=== PATIENT | female | born 1995 | race Caucasian/White ===

== ENCOUNTER 2018-02-28 02:00 | Inpatient (IN) | END 2018-03-02 12:30 | disposition home or self-care (01) | DRG 690 ==

== ENCOUNTER 2018-03-16 19:56 | Emergency (ER) | END 2018-03-17 07:06 | disposition short-term general hospital (02) ==

== ENCOUNTER 2018-09-26 08:26 | Emergency (ER) | payer OTHER ==
[~2018-09-26] VITALS: Ht 157.5 cm; Wt 75.9 kg
[~2018-09-26 08:26] MED LIST: CEPH-443 PO; CHOL400T10 PO; FER325 PO; MYCO200S PO; PRED5TAB PO; RANI150T35 PO; TACR1CAP26 PO
[2018-09-26 08:28] VITALS: BP 128/78; PULSE 79; RESP 18; Ht 157.5 cm; Wt 75.9 kg
[2018-09-26] MEDS ORDERED: LIDOCAINE 1% (MPF) 5 ML VIAL INJ ONE (09:00)
[2018-09-26] MEDS ORDERED: CEFTRIAXONE 1 GM INJ IM ONE (09:00)
[2018-09-26] MEDS ORDERED: CIPR500T4 PO (09:31)
[2018-09-26] MEDS ORDERED: PHEN-538 PO (09:31)
--- NOTE | 2018-09-26 09:48 | ERD ---
ER Documentation Chief Complaint Chief Complaint pain/burning with urination x 2 weeks HPI 22-year-old female presenting with dysuria for 2 weeks. Patient had a history of kidney transplant October 2017 with history of urinary tract infections. She states 2 weeks ago she began having dysuria with urinary frequency. She denies any back pain or fevers. Denies hematuria. She has been taking Macrobid with no alleviation of symptoms. Her next nephrology appointment is September 2017. 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 Patient has never been on dialysis. NKDA. Surgical history transplant surgery. Social history denies. Fever denies ROS All systems reviewed and are negative except as per history of present illness. Medications Home Meds Active Scripts Phenazopyridine Hcl* (Pyridium*) 200 Mg Tab, 200 MG PO TID PRN for URINARY PAIN, #6 TAB Prov:DELPHINE GANNON PA-C 09/26/18 Ciprofloxacin Hcl* (Ciprofloxacin Hcl*) 500 Mg Tablet, 500 MG PO BID for 10 Days, TAB Prov:DELPHINE GANNON PA-C 09/26/18 Cephalexin* (Keflex*) 500 Mg Capsule, 500 MG PO Q8, #15 CAP Prov:DELFINO TERRELL 03/02/18 Ferrous Sulfate* (Ferrous Sulfate*) 325 Mg Tabec, 325 MG PO BID, #60 TAB Prov:DELFINO TERRELL 03/02/18 Reported Medications Tacrolimus* (Prograf*) 1 Mg Capsule, 3 MG PO Q12, CAP 02/28/18 Ranitidine Hcl* (Zantac*) 150 Mg Tablet, 150 MG PO BID, #60 TAB 02/28/18 Cholecalciferol* (Vitamin D*) 400 Unit Tablet, 400 UNIT PO DAILY, TAB 02/28/18 Prednisone* (Prednisone*) 5 Mg Tab, 5 MG PO DAILY, TAB 02/28/18 Mycophenolate Mofetil* (Cellcept*) 200 Mg/Ml Susp.recon, 1000 MG PO Q12, ML 02/28/18 Allergies Allergies: Coded Allergies: No Known Allergy (Unverified , 09/26/18) PMhx/Soc History of Surgery: Yes (RIGHT KIDNEY TRANSPLANT) Anesthesia Reaction: No Hx Neurological Disorder: No Hx Respiratory Disorders: No Hx Cardiac Disorders: No Hx Psychiatric Problems: No Hx Miscellaneous Medical Probl: Yes (renal hypoplasia) Hx Alcohol Use: No Hx Substance Use: No Hx Tobacco Use: No Smoking Status: Never smoker FmHx Family History: No diabetes, No coronary disease, No other Physical Exam Vitals Vital Signs Date Temp Pulse Resp B/P (MAP) Pulse Ox O2 O2 Flow FiO2 Time Delivery Rate 09/26/18 98.7 79 18 128/78 100 08:28 (95) Physical Exam GENERAL: The patient is well-appearing, well-nourished, in no acute distress CHEST: Clear to auscultation bilaterally. There are no rales, wheezes or rhonchi. HEART: Regular rate and rhythm. No murmurs, clicks, rubs or gallops. ABDOMEN:Soft, nontender and nondistended. Good bowel sounds. No rebound or guarding. No gross peritonitis. No gross organomegaly or masses. Positive suprapubic tenderness. BACK: No midline or flank tenderness. CVA tenderness Results 24 hrs Laboratory Tests Test 09/26/18 09:20 09/26/18 09:22 Bedside Urine pH (LAB) 6.5 Bedside Urine Protein (LAB) 2+ Bedside Urine Glucose (UA) Negative Bedside Urine Ketones (LAB) Negative Bedside Urine Blood 1+ Bedside Urine Nitrite (LAB) Positive Bedside Urine Leukocyte Esterase (L 3+ POC Beta HCG, Qualitative NEGATIVE Current Medications Medications Dose Sig/Wellington Start Time Status Last (Trade) Ordered Route PRN Stop Time Admin Dose Reason Admin Ceftriaxone 1 gm ONCE ONCE 09/26/18 DC 09/26/18 Sodium IM 09:00 09:11 (Rocephin) 09/26/18 09:01 Lidocaine 5 ml ONCE ONCE 09/26/18 DC 09/26/18 (Xylocaine INJ 09:00 09:11 1% (Mpf)) 09/26/18 09:01 Procedures/MDM ER course: Urine sent for culture. Rocephin given ED. MDM: 22-year-old female presenting with findings consistent with urinary tract infection. Patient is recommended to follow-up with her mathematics professor earlier than the end of the month. Patient is discharged with antibiotics. Patient is told symptoms change or worsen to return to the ER. I have low suspicion for pyelonephritis given there is no CVA tenderness and patient's vitals are stable. Patient is discharged stricter precautions. All questions answered at discharge Departure Diagnosis: Primary Impression: UTI (urinary tract infection) Condition: Stable Patient Instructions: Understanding Urinary Tract Infections (UTIs) Referrals: [facility] YOU HAVE RECEIVED A MEDICAL SCREENING EXAM AND THE RESULTS INDICATE THAT YOU DO NOT HAVE A CONDITION THAT REQUIRES URGENT TREATMENT IN THE EMERGENCY DEPARTMENT. FURTHER EVALUATION AND TREATMENT OF YOUR CONDITION CAN WAIT UNTIL YOU ARE SEEN IN YOUR DOCTORS OFFICE WITHIN THE NEXT 1-2 DAYS. IT IS YOUR RESPONSIBILITY TO MAKE AN APPOINTMENT FOR FOLOW-UP CARE. IF YOU HAVE A PRIMARY DOCTOR --you should call your primary doctor and schedule an appointment IF YOU DO NOT HAVE A PRIMARY DOCTOR YOU CAN CALL OUR PHYSICIAN REFERRAL HOTLINE AT IF YOU CAN NOT AFFORD TO SEE A PHYSICIAN YOU CAN CHOSE FROM THE FOLLOWING [facility] [address] [facility] [address] [facility] [address] [facility] [address] [facility]. [facility] [address] [facility]. [facility] [address] Additional Instructions: FOLLOW UP WITH YOUR PRIMARY CARE PHYSICIAN TOMORROW.Return to this facility if you are not improving as expected. DELPHINE GANNON PA-C Sep 26, 2018 09:48
== END 2018-09-26 10:00 | disposition home or self-care (01) ==
LOC: FTE 08:26
DX: N39.0 Urinary tract infection, site not specified (principal)
CPT/HCPCS: 81003; 81025; 87086; 96372; J0696; Z7502; Z7610

== ENCOUNTER 2019-01-16 13:41 | Emergency (ER) | payer OTHER ==
[~2019-01-16] VITALS: Ht 149.9 cm; Wt 75.2 kg
[~2019-01-16 13:41] MED LIST changes: +CIPR500T4 PO; +PHEN-538 PO
[2019-01-16 13:48] VITALS: BP 192/86; PULSE 100; RESP 18; Ht 149.9 cm; Wt 75.2 kg
[2019-01-16] MEDS ORDERED: DIPHENHYDRAMINE 25 MG CAP PO ONE (14:30)
[2019-01-16] MEDS ORDERED: CEFTRIAXONE 1 GM INJ IM ONE (18:00)
[2019-01-16] MEDS ORDERED: LIDOCAINE 1% (MPF) 5 ML VIAL INFIL ONE (18:00)
--- NOTE | 2019-01-16 19:02 | ERD ---
ER Documentation Chief Complaint Chief Complaint dysuria and frequency x 3 days,had kidney transplant 1 year ago, HPI This is a 23-year-old female with history of a kidney transplant October, who presents with frequency and dysuria x3 days. Patient states she has a history of recurrent UTIs. She was last treated for this approximately 3 months ago. She is also describing some nonspecific back pain. No fevers at home. No n ausea or vomiting. No abdominal pain. She is currently on prednisone. She has an appointment with her special education aide/PCP and 5 days. She states even after transplant, both of her kidneys filtered approximately 30%. ROS All systems reviewed and are negative except as per history of present illness. Medications Home Meds Active Scripts Phenazopyridine Hcl* (Pyridium*) 200 Mg Tab, 200 MG PO TID PRN for URINARY PAIN, #6 TAB Prov:DELPHINE GANNON PA-C 09/26/18 Ciprofloxacin Hcl* (Ciprofloxacin Hcl*) 500 Mg Tablet, 500 MG PO BID for 10 Days, TAB Prov:DELPHINE GANNON PA-C 09/26/18 Cephalexin* (Keflex*) 500 Mg Capsule, 500 MG PO Q8, #15 CAP Prov:DELFINO TERRELL RESEARCH EDITOR 03/02/18 Ferrous Sulfate* (Ferrous Sulfate*) 325 Mg Tabec, 325 MG PO BID, #60 TAB Prov:DELFINO TERRELL RESEARCH EDITOR 03/02/18 Reported Medications Tacrolimus* (Prograf*) 1 Mg Capsule, 3 MG PO Q12, CAP 02/28/18 Ranitidine Hcl* (Zantac*) 150 Mg Tablet, 150 MG PO BID, #60 TAB 02/28/18 Cholecalciferol* (Vitamin D*) 400 Unit Tablet, 400 UNIT PO DAILY, TAB 02/28/18 Prednisone* (Prednisone*) 5 Mg Tab, 5 MG PO DAILY, TAB 02/28/18 Mycophenolate Mofetil* (Cellcept*) 200 Mg/Ml Susp.recon, 1000 MG PO Q12, ML 02/28/18 Allergies Allergies: Coded Allergies: No Known Allergy (Unverified , 09/26/18) PMhx/Soc History of Surgery: Yes (RIGHT KIDNEY TRANSPLANT) Anesthesia Reaction: No Hx Neurological Disorder: No Hx Respiratory Disorders: No Hx Cardiac Disorders: No Hx Psychiatric Problems: No Hx Miscellaneous Medical Probl: Yes (renal hypoplasia) Hx Alcohol Use: No Hx Substance Use: No Hx Tobacco Use: No Smoking Status: Never smoker Physical Exam Vitals Vital Signs Date Temp Pulse Resp B/P (MAP) Pulse Ox O2 O2 Flow FiO2 Time Delivery Rate 01/16/19 98.8 100 18 192/86 99 13:48 (121) Physical Exam Const: No acute distress Head: Atraumatic Eyes: Normal Conjunctiva ENT: Normal External Ears, Nose and Mouth. Neck: Full range of motion. No meningismus. Resp: Clear to auscultation bilaterally Cardio: Regular rate and rhythm, no murmurs Abd: Soft, + mild suprapubic tenderness palpation. No rebound, no guarding. Non distended. Normal bowel sounds Skin: No petechiae or rashes Back: No midline or flank tenderness Ext: No cyanosis, or edema Neur: Awake and alert Psych: Normal Mood and Affect Result Diagram: 01/16/19 1632 01/16/19 1632 Results 24 hrs Laboratory Tests Test 01/16/19 14:21 01/16/19 16:32 Urine Color COLORLESS Urine Clarity SLIGHTLY CLOUDY Urine pH 7.0 Urine Specific Tyrone 1.006 Urine Ketones NEGATIVE mg/dL Urine Nitrite NEGATIVE mg/dL Urine Bilirubin NEGATIVE mg/dL Urine Urobilinogen NEGATIVE mg/dL Urine Leukocyte Esterase TRACE Maria Victoria/ul Urine Microscopic RBC 1 /HPF Urine Microscopic WBC 7 /HPF Urine Squamous Epithelial Cells FEW /HPF Urine Bacteria FEW /HPF Urine Hemoglobin 1+ mg/dL Urine Glucose NEGATIVE mg/dL Urine Total Protein NEGATIVE mg/dl Urine Test NEGATIVE White Blood Count 10.9 10^3/ul Red Blood Count 4.11 10^6/ul Hemoglobin 12.0 g/dl Hematocrit 36.1 % Mean Corpuscular Volume 87.8 fl Mean Corpuscular Hemoglobin 29.2 pg Mean Corpuscular Hemoglobin Concent 33.2 g/dl Red Cell Distribution Width 12.8 % Platelet Count 270 10^3/UL Mean Platelet Volume 10.3 fl Immature Granulocytes % 2.000 % Neutrophils % 71.8 % Lymphocytes % 17.2 % Monocytes % 5.7 % Eosinophils % 2.8 % Basophils % 0.5 % Nucleated Red Blood Cells % 0.0 /100WBC Immature Granulocytes # 0.220 10^3/ul Neutrophils # 7.8 10^3/ul Lymphocytes # 1.9 10^3/ul Monocytes # 0.6 10^3/ul Eosinophils # 0.3 10^3/ul Basophils # 0.1 10^3/ul Nucleated Red Blood Cells # 0.0 10^3/ul Sodium Level 140 mmol/L Potassium Level 3.5 mmol/L Chloride Level 110 mmol/L Carbon Dioxide Level 17 mmol/L Anion Gap 13 Blood Urea Nitrogen 26 mg/dl Creatinine 2.38 mg/dl Est Glomerular Filtrat Rate mL/min 26 mL/min Glucose Level 100 mg/dl Calcium Level 8.9 mg/dl Current Medications Medications Dose Sig/Wellington Start Time Status Last (Trade) Ordered Route PRN Stop Time Admin Dose Reason Admin 25 mg ONCE ONCE 01/16/19 DC 01/16/19 Diphenhydrami PO 14:30 01/16/19 14:21 ne HCl 14:31 (Benadryl) Ceftriaxone 1 gm ONCE ONCE 01/16/19 DC 01/16/19 Sodium IM 18:00 01/16/19 17:39 (Rocephin) 18:00 Lidocaine 5 ml ONCE ONCE 01/16/19 DC 01/16/19 (Xylocaine INFIL 18:00 01/16/19 17:38 1% (Mpf)) 18:00 Procedures/MDM LABS & DIAGNOSTIC IMAGING: Urine: + trace leuk esterase, neg nitrites, no hematuria or pyuria CBC: no e/o of systemic infection or severe anemia BMP: Cr 2.3, GFR 27, which is her baseline per patient Hcg: neg ED COURSE: The patient was given IM Rocephin The medication was well tolerated and the patient had market improvement in symptoms. The patient remained stable throughout ED course. MEDICAL DECISION MAKING: This is a 23-year-old female with a kidney transplant over a year ago who presents with urinary symptoms. Patient has a mild infection on UA and given that she is symptomatic, will treat with Rocephin. WBC is mildly elevated, likely related to her steroid use. Her creatinine and kidney function is otherwise at her baseline. Remaining work-up was unremarkable. Vital signs have been normal. I have low suspicion for pyelonephritis, dehydration, sepsis or any other emergent condition. Patient will be discharged home and given copies of her lab report to follow-up with her PCP in a few days. Strict return precautions were discussed. PRESCRIPTIONS: None SPECIALIST FOLLOW UP RECOMMENDED: None Patient has been advised to follow up with primary care in 1-2 days. Departure Diagnosis: Primary Impression: Dysuria Condition: Stable Patient Instructions: Dysuria, Understanding Urinary Tract Infections (UTIs) Referrals: [facility] YOU HAVE RECEIVED A MEDICAL SCREENING EXAM AND THE RESULTS INDICATE THAT YOU DO NOT HAVE A CONDITION THAT REQUIRES URGENT TREATMENT IN THE EMERGENCY DEPARTMENT. FURTHER EVALUATION AND TREATMENT OF YOUR CONDITION CAN WAIT UNTIL YOU ARE SEEN IN YOUR DOCTORS OFFICE WITHIN THE NEXT 1-2 DAYS. IT IS YOUR RESPONSIBILITY TO MAKE AN APPOINTMENT FOR FOLOW-UP CARE. IF YOU HAVE A PRIMARY DOCTOR --you should call your primary doctor and schedule an appointment IF YOU DO NOT HAVE A PRIMARY DOCTOR YOU CAN CALL OUR PHYSICIAN REFERRAL HOTLINE AT IF YOU CAN NOT AFFORD TO SEE A PHYSICIAN YOU CAN CHOSE FROM THE FOLLOWING [facility] [address] [facility] [address] [facility] [facility] [address] [facility] [address] [facility] [address] [facility]. [facility] [address] [facility]. [facility] YOU HAVE RECEIVED A MEDICAL SCREENING EXAM AND THE RESULTS INDICATE THAT YOU DO NOT HAVE A CONDITION THAT REQUIRES URGENT TREATMENT IN THE EMERGENCY DEPARTMENT. FURTHER EVALUATION AND TREATMENT OF YOUR CONDITION CAN WAIT UNTIL YOU ARE SEEN IN YOUR DOCTORS OFFICE WITHIN THE NEXT 1-2 DAYS. IT IS YOUR RESPONSIBILITY TO MAKE AN APPOINTMENT FOR FOLOW-UP CARE. IF YOU HAVE A PRIMARY DOCTOR --you should call your primary doctor and schedule and appointment IF YOU DO NOT HAVE A PRIMARY DOCTOR YOU CAN CALL OUR PHYSICIAN REFERRAL HOTLINE AT . IF YOU CAN NOT AFFORD TO SEE A PHYSICIAN YOU CAN CHOSE FROM THE FOLLOWING [facility] INSTITUTIONS: [facility] [address] [place] [address] [facility] [address] [place] [address] [facility] + [facility] [address] [place] [address] Additional Instructions: Take copies of your lab work to your doctor's appointment on Monday. You were given antibiotic shot here. Return here for any new or worsening symptoms. JUNITO SCOTT PA-C Jan 16, 2019 19:02
== END 2019-01-16 17:48 | disposition home or self-care (01) ==
LOC: FTE 13:41
DX: R30.0 Dysuria (principal); Z94.0 Kidney transplant status
CPT/HCPCS: 80048; 81001; 84703; 85025; 96372; J0696; Z7502; Z7610

== ENCOUNTER 2019-01-22 14:21 | Emergency (ER) | payer OTHER ==
[~2019-01-22] VITALS: Ht 157.5 cm; Wt 80.0 kg
[2019-01-22 14:25] VITALS: Ht 157.5 cm; Wt 80.0 kg
[2019-01-22] MEDS ORDERED: SOD CHLORIDE 0.9% 1,000 ML IV STA (15:04)
[2019-01-22] MEDS ORDERED: ONDANSETRON 4 MG INJ IV STA (15:04)
[2019-01-22] MEDS ORDERED: TACR1CAP26 PO (16:28)
[2019-01-22] MEDS ORDERED: FER325 PO (16:29)
[2019-01-22] MEDS ORDERED: RANI150T5 PO (16:29)
[2019-01-22] MEDS ORDERED: PRED10TA PO (16:29)
[2019-01-22] MEDS ORDERED: SODIUM CHLORIDE 0.9% 1L BAG IV* STA (17:04)
[2019-01-22] MEDS ORDERED: CEFEPIME 1GM/50 ML (PMX) 50 ML IVPB ONE (17:30)
[2019-01-22] MEDS ORDERED: ACETAMINOPHEN 325 MG TAB PO PRN (19:00)
[2019-01-22] MEDS ORDERED: ONDANSETRON 4 MG INJ IV PRN (19:00)
[2019-01-22] MEDS ORDERED: METHYLPRED. NA SUCC 500 MG in DEXTROSE 5% 50 ML IVPB ONE (19:00)
--- NOTE | 2019-01-22 21:05 | ERD ---
ER Documentation Chief Complaint Chief Complaint VOMITING TODAY HPI This is a 23-year-old female with a past medical history of congenital chronic kidney disease and renal failure status post kidney transplant in October 2017 previously on CellCept and Prograf, chronic anemia, recurrent UTIs who is now presenting for persistent nausea and vomiting. The patient was seen on January 16 for similar symptoms. She had a creatinine of 2.3 at the time with a GFR of 27. According the patient at the time, the patient noted that her GFR was around 30, so her studies appeared chronic. The patient's urinalysis at the time was concerning for possible urinary tract infection. Her urine hCG was negative from this visit. The patient was treated with a dose of Rocephin and ultimately discharged. The patient returns today for persistent nausea and vomiting and feeling generally unwell with dysuria, urinary urgency and frequency. The pat iebarbra reports that she has been trying to get , shows she has been off her CellCept recently, being closely followed by her fold skiver. Her fold skiver saw her today and had blood work redrawn and ultimately told her to come to the emergency department for worsening renal function and concern of renal transplant rejection. The patient does not endorse any alleviating or exacerbating factors. The patient denies feeling sick recently. The patient denies fever or chills. The patient has had no headache or vision changes. The patient does not endorse neck or back pain. The patient denies lightheadedness or dizziness. The patient has had no chest pain or trouble breathing. The patient denies abdominal pain. The patient denies changes to bowel movements. The patient has had no focal deficits. The patient has had no weakness or numbness or tingling to the face or extremities. ROS All systems reviewed and are negative except as per history of present illness. Medications Home Meds Reported Medications Ranitidine Hcl* (Ranitidine Hcl*) 150 Mg Tablet, 150 MG PO Q12, #60 TAB 01/22/19 Prednisone* (Prednisone*) 10 Mg Tab, 10 MG PO DAILY, TAB 01/22/19 Ferrous Sulfate* (Ferrous Sulfate*) 325 Mg Tabec, 650 MG PO BID, TAB 01/22/19 Tacrolimus* (Prograf*) 1 Mg Capsule, 2 MG PO Q12, CAP 01/22/19 Discontinued Reported Medications Tacrolimus* (Prograf*) 1 Mg Capsule, 3 MG PO Q12, CAP 02/28/18 Ranitidine Hcl* (Zantac*) 150 Mg Tablet, 150 MG PO BID, #60 TAB 02/28/18 Cholecalciferol* (Vitamin D*) 400 Unit Tablet, 400 UNIT PO DAILY, TAB 02/28/18 Prednisone* (Prednisone*) 5 Mg Tab, 5 MG PO DAILY, TAB 02/28/18 Mycophenolate Mofetil* (Cellcept*) 200 Mg/Ml Susp.recon, 1000 MG PO Q12, ML 02/28/18 Discontinued Scripts Phenazopyridine Hcl* (Pyridium*) 200 Mg Tab, 200 MG PO TID PRN for URINARY PAIN, #6 TAB Prov:DELPHINE GANNON PA-C 09/26/18 Ciprofloxacin Hcl* (Ciprofloxacin Hcl*) 500 Mg Tablet, 500 MG PO BID for 10 Days, TAB Prov:DELPHINE GANNON PA-C 09/26/18 Cephalexin* (Keflex*) 500 Mg Capsule, 500 MG PO Q8, #15 CAP Prov:DELFINO TERRELL [employer] CLERK 03/02/18 Ferrous Sulfate* (Ferrous Sulfate*) 325 Mg Tabec, 325 MG PO BID, #60 TAB Prov:DELFINO TERRELL [employer] CLERK 03/02/18 Allergies Allergies: Coded Allergies: No Known Allergy (Unverified , 01/22/19) PMhx/Soc History of Surgery: Yes (RIGHT KIDNEY TRANSPLANT) Anesthesia Reaction: No Hx Neurological Disorder: No Hx Respiratory Disorders: No Hx Cardiac Disorders: No Hx Psychiatric Problems: No Hx Miscellaneous Medical Probl: Yes (renal hypoplasia) Hx Alcohol Use: No Hx Substance Use: No Hx Tobacco Use: No Smoking Status: Never smoker FmHx Family History: No diabetes Physical Exam Vitals Vital Signs Date Temp Pulse Resp B/P (MAP) Pulse Ox O2 O2 Flow FiO2 Time Delivery Rate 01/22/19 96 18 116/75 100 Room Air 18:42 (89) 01/22/19 98.1 104 18 121/65 99 14:25 (83) Physical Exam Const: No apparent distress, well-developed, well-nourished Head: Normocephalic, Atraumatic Eyes: Normal Conjunctiva. Extraocular movements intact. Pupils equal, round and reactive to light ENT: Normal External Ears, Nose and Mouth. Neck: Full range of motion. No meningismus. Resp: Clear to auscultation bilaterally, No wheezes, rales or rhonchi Cardio: Regular rate and rhythm. No murmurs, rubs or gallops Abd: Soft, non tender, non distended. Normal bowel sounds Skin: No petechiae or rashes Back: No midline tenderness. No CVA tenderness Ext: No cyanosis, or edema Neur: Awake and alert, oriented 4. Cranial nerves intact. No facial droop. Normal strength, sensation and coordination. Psych: Normal Mood and Affect Result Diagram: 01/22/19 1528 01/22/19 1615 Results 24 hrs Laboratory Tests Test 01/22/19 15:28 01/22/19 15:37 01/22/19 16:15 01/22/19 19:25 White Blood Count 14.2 10^3/ul Red Blood Count 3.74 10^6/ul Hemoglobin 11.1 g/dl Hematocrit 32.5 % Mean Corpuscular 86.9 fl Volume Mean Corpuscular 29.7 pg Hemoglobin Mean Corpuscular 34.2 g/dl Hemoglobin Concent Red Cell Distribution 13.2 % Width Platelet Count 244 10^3/UL Mean Platelet Volume 11.3 fl Immature Granulocytes 1.800 % % Neutrophils % 83.2 % Lymphocytes % 7.7 % Monocytes % 5.0 % Eosinophils % 1.8 % Basophils % 0.5 % Nucleated Red Blood 0.0 /100WBC Cells % Immature Granulocytes 0.260 10^3/ul # Neutrophils # 11.8 10^3/ul Lymphocytes # 1.1 10^3/ul Monocytes # 0.7 10^3/ul Eosinophils # 0.3 10^3/ul Basophils # 0.1 10^3/ul Nucleated Red Blood 0.0 10^3/ul Cells # Urine Color YELLOW Urine Clarity CLOUDY Urine pH 7.0 Urine Specific 1.006 [place] Urine Ketones NEGATIVE mg/dL Urine Nitrite NEGATIVE mg/dL Urine Bilirubin NEGATIVE mg/dL Urine Urobilinogen NEGATIVE mg/dL Urine Leukocyte TRACE Maria Victoria/ul Esterase Urine Microscopic RBC 5 /HPF Urine Microscopic WBC 27 /HPF Urine Squamous MANY /HPF Epithelial Cells Urine Bacteria FEW /HPF Urine Hemoglobin 1+ mg/dL Urine Glucose NEGATIVE mg/dL Urine Total Protein 1+ mg/dl Urine Test POSITIVE POC Beta HCG, BORDERLINE Qualitative Sodium Level 137 mmol/L Potassium Level 3.7 mmol/L Chloride Level 113 mmol/L Carbon Dioxide Level 15 mmol/L Anion Gap 9 Blood Urea Nitrogen 33 mg/dl Creatinine 3.66 mg/dl Est Glomerular 16 mL/min Filtrat Rate mL/min Glucose Level 99 mg/dl Calcium Level 8.6 mg/dl Total Bilirubin 0.4 mg/dl Direct Bilirubin 0.00 mg/dl Indirect Bilirubin 0.4 mg/dl Aspartate Amino 17 IU/L Transf (AST/SGOT) Alanine 7 IU/L Aminotransferase (ALT /SGPT) Alkaline Phosphatase 80 IU/L Total Protein 8.8 g/dl Albumin 3.8 g/dl Globulin 5.00 g/dl Albumin/Globulin 0.76 Ratio Lipase 170 U/L Serum HCG, POSITIVE Qualitative Beta HCG, 60.5 mIU/ml Quantitative Lactic Acid Level 1.0 mmol/L Current Medications Medications Dose Sig/[place] Start Time Status Last (Trade) Ordered Route PRN Stop Time Admin Dose Reason Admin Sodium 1,000 ml @ Q1H STAT 01/22/19 DC 01/22/19 Chloride 1,000 mls/hr IV 15:04 01/22/19 15:36 16:03 Ondansetron 4 mg ONCE STAT 01/22/19 DC 01/22/19 HCl (Zofran IV 15:04 01/22/19 15:35 Inj) 15:05 Sodium 1,400 ml BOLUS OVER 2 01/22/19 DC 01/22/19 Chloride HOURS STAT 17:04 01/22/19 17:57 (NS) IV* 17:10 Cefepime HCl 50 ml @ ONCE ONCE 01/22/19 DC 01/22/19 100 mls/hr IVPB 17:30 01/22/19 17:56 17:59 Ondansetron 4 mg BRIDGE ORDER 01/22/19 HCl (Zofran PRN IV 19:00 Inj) NAUSEA/VOMITI 01/23/19 18:59 NG 650 mg ER BRIDGE 01/22/19 Acetaminophen PRN PO 19:00 (Tylenol .MILD PAIN 01/23/19 18:59 Tab) 1-3 OR TEMP 50 ml @ ONCE ONCE 01/22/19 DC 01/22/19 Methylprednis 100 mls/hr IVPB 19:00 01/22/19 19:50 olone Sodium 19:29 Succinate 500 mg/Dextrose Procedures/MDM MDM The patient's presentation warrants further investigation. Previous medical records, if available, were reviewed. LABS The patient's laboratory testing was obtained and reviewed. No emergent treatment was required unless described below. CBC: Leukocytosis, concerning for infection. No E/osevere anemia or thrombocytopenia. Mild normocytic anemia evident, not emergent. Chemistry: No E/o severe acidosis or alkalosis or liver disease or diabetic ketoacidosis. Worsening creatinine, concerning for renal failure. Lipase: No E/o pancreatitis Lactate: No E/o severe sepsis Urine: E/o acute infection with hematuria hCG: Elevated IMAGING Imaging and Radiology interpretation reviewed. Ultrasound pelvis FINDINGS: The uterus is normal in size and demonstrates a normal appearance of the myometrium. The uterus measures 8.2 x 2.7 x 3.8 cm in size. The endometria l stripe is homogeneous in appearance and has the thickness of 11 mm. No intrauterine gestation is noted. The left ovary was not visualized. The right ovary is normal in size and echogenicity and measures 3.6 x 1.4 x 2.0 cm. There is normal Doppler flow. There is a right lower quadrant transplanted kidney with no evidence of hydronephrosis. No free fluid is present within the pelvis. IMPRESSION: No intrauterine gestation visualized. Left ovary not visualized. Right lower quadrant transplant kidney with no hydronephrosis. Differential diagnosis includes early , missed or ectopic . Follow-up ultrasound and HCG levels is recommended. Electronically viewed and signed by .Perry Rodriguez MD, on 01/22/2019 18:39 TREATMENT/DISPOSITION The patient presents for persistent nausea and vomiting. The patient may in fact be . The patient does not endorse any lower quadrant pain. I have decreased suspicion for ectopic . In early or missed are also possibilities. This will need to be closely monitored in the hospital. What is more concerning is the patient's tachycardia, leukocytosis and infectious source and a urinary tract infection. While the patient's lactic acid is normal, the patient's renal function is significantly worse. The patient has a history of renal transplant, and I am concerned about the pos sibility of rejection, especially in the setting of not taking her mycophenolate in an attempt to get under the supervision of her fold skiver. The patient does meet criteria for severe sepsis, and the sepsis protocol was initiated later in her course once this was recognized. The patient was treated with a sepsis bolus and given a dose of cefepime in the emergency department. I spoke to the patient's fold skiver, Dr. Pagan, who agreed that the patient required treatment for possible sepsis. He also recommended that the patient be given a bolus of Solu-Medrol and possible initiation of stress dosed steroids in the hospital. SEPSIS NOTE SIRS Criteria: Tachycardia, leukocytosis Infectious source: UTI End organ damage indicated by: Cr > 2.0 SEPSIS MANAGEMENT Time to recognize sepsis: 1929. Time to recognize severe sepsis: 1929. Time to recognize septic shock: No septic shock at this time. 3 HOUR BUNDLE Blood cultures x 2 before abx: Yes 30 ml/kg NS bolus completed Initial lactate 1.0 Repeat lactate not indicated SEPTIC SHOCK ASSESSMENT: NO lactic acid > 4.0 NO persistent hypotension (SBP < 90 or 40 mmHg drop, MAP < 65) despite 30 L/kg IV fluid bolus CRITICAL CARE Critical care time 35 minutes Emergent fluid management while maintaining close respiratory support. Provision of immediate and broad-spectrum antibiotic therapy. Simultaneous assessment for possible sources in order to direct targeted therapy. Consideration for invasive and chemical support to prevent cardiopulmonary collapse. Critical care time is independent of procedures performed. ADMISSION/TRANSFER At this time, I feel that the patient requires admission for further evaluation and management. I also spoke to the admitting panel physician, who expressed concern about our ability to manage a transplant case in the hospital. He spoke with the fold skiver who would be taking care of the patient in our hospital, Dr. Flynn, who likewise felt that the patient required higher level of care and transfer to a facility with both nephrology and transplant surgery. The patient's surgery occurred at [facility], but she has transitioned out of pediatric care. We are currently in the process of determining an accepting facility for transfer. Disclaimer: Inadvertent spelling and grammatical errors are likely due to EHR/dictation software use and do not reflect on the overall quality of patient care. Note that the electronic time recorded on this note does not necessarily reflect the actual time of the patient encounter. Departure Diagnosis: Primary Impression: Severe sepsis Additional Impressions: UTI (urinary tract infection) Urinary tract infection type: acute cystitis Hematuria presence: with he maturia Qualified Codes: N30.01 - Acute cystitis with hematuria Tachycardia Leukocytosis Leukocytosis type: unspecified Qualified Codes: D72.829 - Elevated white blood cell count, unspecified Nausea & vomiting Vomiting type: unspecified Vomiting Intractability: non-intractable Qualified Codes: R11.2 - Nausea with vomiting, unspecified Weeks of gestation: less than 8 weeks Qualified Codes: Z3A.01 - Less than 8 weeks gestation of History of kidney transplant Acute renal failure Acute renal failure type: unspecified Qualified Codes: N17.9 - Acute kidney failure, unspecified Renal transplant rejection Metabolic acidosis Normocytic anemia Condition: Serious FELICIA CUMMINS MD Jan 22, 2019 21:02
[2019-01-23 16:24] VITALS: BP 107/60; PULSE 70; RESP 16
== END 2019-01-23 16:26 | disposition short-term general hospital (02) ==
LOC: FTE 14:21 → CANRESERV 19:21 → CANBEDREQ 20:21 → E/R 01-23 16:26
DX: O98.811 Other maternal infectious and parasitic diseases complicating pregnancy, first trimester (principal); R65.20 Severe sepsis without septic shock; A41.9 Sepsis, unspecified organism; N17.9 Acute kidney failure, unspecified; O23.11 Infections of bladder in pregnancy, first trimester; O26.891 Other specified pregnancy related conditions, first trimester; O99.111 Other diseases of the blood and blood-forming organs and certain disorders involving the immune mechanism complicating pregnancy, first trimester; D72.829 Elevated white blood cell count, unspecified; T86.11 Kidney transplant rejection; O26.831 Pregnancy related renal disease, first trimester; O99.281 Endocrine, nutritional and metabolic diseases complicating pregnancy, first trimester; E87.2 Acidosis; O99.011 Anemia complicating pregnancy, first trimester; R00.0 Tachycardia, unspecified; D64.9 Anemia, unspecified; Y82.8 Other medical devices associated with adverse incidents; Z3A.01 Less than 8 weeks gestation of pregnancy; Z94.0 Kidney transplant status
CPT/HCPCS: 36415; 76801; 76817; 80048; 80053; 81001; 81025; 83605; 83690; 84702; 84703; 85025; 87040; 87086; 96374; 96375; J0692; J2405; J2930; J7030; Z7502; Z7610